=== PATIENT | female | born 1990 | race African-American/Black ===

== ENCOUNTER 2019-04-13 17:49 | Emergency (ER) | payer OTHER ==
[~2019-04-13] VITALS: Ht 167.6 cm; Wt 75.0 kg
[2019-04-13 20:45] VITALS: BP 140/99
[2019-04-13] MEDS ORDERED: LIDOCAINE HCL/PF 1% 10 MG/ML 5ML VIAL IJ ONE (20:45)
[2019-04-13] MEDS ORDERED: BACITRACIN ZINC OINT UDPKT TOP ONE (20:45)
[2019-04-13] MEDS ORDERED: HYDROCODONE/ACETAMINOPHEN 5/325MG TABLET PO ONE (20:45)
[2019-04-13] MEDS ORDERED: IBUPROFEN 600MG TABLET PO ONE (20:45)
== END 2019-04-13 22:04 | disposition home or self-care (01) ==
LOC: ER 18:07
DX: S51.851A Open bite of right forearm, initial encounter (principal); W54.0XXA Bitten by dog, initial encounter; Y93.89 Activity, other specified; Y92.89 Other specified places as the place of occurrence of the external cause
CPT/HCPCS: 12002; 73090; 81025; 99283; J3490; Z7610